=== PATIENT | male | born 1995 | race Caucasian/White ===

== ENCOUNTER 2021-09-20 08:33 | Emergency (ER) | payer OTHER ==
[2021-09-20 08:39] VITALS: RESP 18
[2021-09-20] MEDS ORDERED: LORazepam 1 MG TAB PO STA (09:01)
--- NOTE | 2021-09-20 09:03 | ED ---
General Adult HPI - General Chief complaint: Anxiety Stated complaint: anxiety Time Seen by Provider: 09/20/21 08:35 Source: patient, RN notes reviewed, old records reviewed Mode of arrival: ambulatory Limitations: no limitations - History of Present Illness Initial comments: This is a 26-year-old male who presents emergency Department complaining of rosado ving a panic attack. Patient states she is under a lot of stress because his safety officer wants to get The next 3 days. Patient also states he thinks he may have got somewhat and so that has added more stress. Patient denies any drug use except marijuana. Patient denies any fever chills or cough per patient denies any chest pain palpitations difficulty breathing shortest breath. Patient states when he got really panicked only was hyperventilating and he became very tingly in his hands and feet and around his mouth. Patient denies any abdominal pain patient denies nausea vomiting diarrhea. - Related Data Home Medications Medication Instructions Recorded Confirmed No Known Home Medications 09/20/21 09/20/21 Allergies Allergy/AdvReac Type Severity Reaction Status Date / Time No Known Allergies Allergy Verified 09/20/21 09:20 Review of Systems ROS Statement: Those systems with pertinent positive or pertinent negative responses have been documented in the HPI. ROS Other: All systems not noted in ROS Statement are negative. Past Medical History Past Medical History: No Reported History History of Any Multi-Drug Resistant Organisms: None Reported Past Surgical History: Orthopedic Surgery Past Psychological History: Anxiety Smoking Status: Vaper Past Alcohol Use History: Occasional Past Drug Use History: Marijuana General Exam - General Exam Comments Initial Comments: GENERAL: Patient is well-developed and well-nourished. Patient is nontoxic and well- hydrated and is in no acute distress. ENT: Neck is soft and supple. No significant lymphadenopathy is noted. Oropharynx is clear. Moist mucous membranes. Neck has full range of motion without eliciting any pain. EYES: The sclera were anicteric and conjunctiva were pink and moist. Extraocular movements were intact and pupils were equal round and reactive to light. Eyelids were unremarkable. PULMONARY: Unlabored respirations. Good breath sounds bilaterally. No audible rales rhonchi or wheezing was noted. CARDIOVASCULAR: There is a regular rate and rhythm without any murmurs gallops or rubs. ABDOMEN: Soft and nontender with normal bowel sounds. SKIN: Skin is clear with no lesions or rashes and otherwise unremarkable. NEUROLOGIC: Patient is alert and oriented x3. Cranial nerves II through XII are grossly intact. Motor and sensory are also intact. Normal speech, volume and content. Symmetrical smile. MUSCULOSKELETAL: Normal extremities with adequate strength and full range of motion. LYMPHATICS: No significant lymphadenopathy is noted PSYCHIATRIC: Patient is mildly anxious. Limitations: no limitations Course Vital Signs 09/20/21 09/20/21 09/20/21 08:36 09:17 10:00 Temperature 97.4 F L 98.0 F Pulse Rate 74 83 Respiratory 18 18 Rate Blood Pressure 130/80 103/62 O2 Sat by Pulse 100 99 Oximetry Medical Decision Making - Medical Decision Making [facility]. Disposition Clinical Impression: Acute anxiety Disposition: HOME SELF-CARE Instructions (If sedation given, give patient instructions): Generalized Anxiety Disorder (ED) Additional Instructions: Patient should follow-up at [facility] Is patient prescribed a controlled substance at d/c from ED?: No Referrals: None,Stated [REFERRING] - 1-2 days Time of Disposition: 09:03
[2021-09-20 10:01] VITALS: BP 103/62; PULSE 83; TEMP 98
== END 2021-09-20 10:03 | disposition home or self-care (01) ==
LOC: EC 08:33
DX: F41.9 Anxiety disorder, unspecified (principal); F17.209 Nicotine dependence, unspecified, with unspecified nicotine-induced disorders
CPT/HCPCS: 99283; 99284

== ENCOUNTER 2024-09-11 07:58 | Emergency (ER) | payer BC, OTHER ==
[2024-09-11 08:01] VITALS: BP 144/87; PULSE 80; RESP 18; TEMP 97.9
--- NOTE | 2024-09-11 08:15 | ED ---
ENT HPI - General Chief complaint: Dental/Oral Stated complaint: Dental pain Time Seen by Provider: 09/11/24 08:00 Source: patient, RN notes reviewed Mode of arrival: ambulatory Limitations: no limitations - History of Present Illness Initial comments: 49-year-old male presents emerged part complaint of dental pain. Patient states he has infected molars states they have cracked out. Patient states he has been having increasing pain over the last week he has not scheduled an appoint with a dentist yet. No fevers or chills no difficulty swallowing. - Related Data Previous Rx's Medication Instructions Recorded Escitalopram [Lexapro] 5 mg PO DAILY #30 tablet 11/07/22 Amoxic-Pot Clav 875-125Mg 1 tab PO Q12HR #20 tab 09/11/24 [Augmentin 875-125] Ibuprofen [Motrin] 600 mg PO Q8HR PRN #20 tab 09/11/24 Allergies Allergy/AdvReac Type Severity Reaction Status Date / Time No Known Allergies Allergy Verified 09/11/24 08:01 Review of Systems ROS Statement: Those systems with pertinent positive or pertinent negative responses have been documented in the HPI. ROS Other: All systems not noted in ROS Statement are negative. Past Medical History Past Medical History: No Reported History History of Any Multi-Drug Resistant Organisms: None Reported Past Surgical History: Orthopedic Surgery Past Psychological History: Anxiety Smoking Status: Current every day smoker, Vaper Past Alcohol Use History: Occasional Past Drug Use History: Marijuana General Exam Limitations: no limitations General appearance: alert, in no apparent distress Head exam: Present: atraumatic, normocephalic, normal inspection Eye exam: Present: normal appearance, PERRL, EOMI. Absent: scleral icterus, conjunctival injection, periorbital swelling ENT exam: Present: mucous membranes moist. Absent: normal oropharynx (Impacted lower molars, associated without obvious abscess) Neck exam: Present: normal inspection, full ROM. Absent: tenderness, meningismus, lymphadenopathy Respiratory exam: Present: normal lung sounds bilaterally. Absent: respiratory distress, wheezes, rales, rhonchi, stridor Cardiovascular Exam: Present: regular rate, normal rhythm, normal heart sounds. Absent: systolic murmur, diastolic murmur, rubs, gallop, clicks Course Vital Signs 09/11/24 07:59 Temperature 97.9 F Pulse Rate 80 Respiratory 18 Rate Blood Pressure 144/87 O2 Sat by Pulse 100 Oximetry Medical Decision Making - Medical Decision Making Was pt. sent in by a medical professional or institution (JENAE Torres, MILL DRESSER, urgent care, hospital, or detention...) When possible be specific @ -No Did you speak to anyone other than the patient for history (EMS, parent, family, police, friend...)? What history was obtained from this source @ -No Did you review nursing and triage notes (agree or disagree)? Why? @ -I reviewed and agree with nursing and triage notes Were old charts reviewed (outside hosp., previous admission, EMS record, old EKG, old radiological studies, urgent care reports/EKG's, detention records)? Report findings @ -No old charts were reviewed Differential Diagnosis (chest pain, altered mental status, abdominal pain women, abdominal pain men, vaginal bleeding, weakness, fever, dyspnea, syncope, headache, dizziness, GI bleed, back pain, seizure, CVA, palpatations, mental health, musculoskeletal)? @ -Toothache, dental abscess, impacted molar, dental fracture EKG interpreted by me (3pts min.). @ -None X-rays interpreted by me (1pt min.). @ -None done CT interpreted by me (1pt min.). @ -None done U/S interpreted by me (1pt. min.). @ -None done What testing was considered but not performed or refused? (CT, X-rays, U/S, labs)? Why? @ -None What meds were considered but not given or refused? Why? @ -None Did you discuss the management of the patient with other professionals (professionals i.e. JENAE Torres, MILL DRESSER, lab, RT, psych nurse, geriatric social work professor, vice president process, teacher, senior vice president and chief information officer, case management assistant)? Give summary @ -No Was smoking cessation discussed for >3mins.? @ -No Was critical care preformed (if so, how long)? @ -No Were there social determinants of health that impacted care today? How? (Homelessness, low income, unemployed, alcoholism, drug addiction, transportation, low edu. Level, literacy, decrease access to med. care, assisted, rehab)? @ -No Was there de-escalation of care discussed even if they declined (Discuss DNR or withdrawal of care, Hospice)? DNR status @ -No What co-morbidities impacted this encounter? (DM, HTN, Smoking, COPD, CAD, Cancer, CVA, ARF, Chemo, Hep., AIDS, mental health diagnosis, sleep apnea, morbid obesity)? @ -None Was patient admitted / discharged? Hospital course, mention meds given and route, prescriptions, significant lab abnormalities, going to OR and other pertinent info. @ -Discharge patient has impacted molar dental fracture probable underlying dental infection patient started on antibiotics will follow-up with dentist kayla servin discussed. Undiagnosed new problem with uncertain prognosis? @ -No Drug Therapy requiring intensive monitoring for toxicity (Heparin, Nitro, Insulin, Cardizem)? @ -No Were any procedures done? @ -No Diagnosis/symptom? @ -Impacted molar r, dental fracture, dental infection Acute, or Chronic, or Acute on Chronic? @ -acute Uncomplicated (without systemic symptoms) or Complicated (systemic symptoms)? @ -Uncomplicated Side effects of treatment? @ -No Exacerbation, Progression, or Severe Exacerbation? @ -No Poses a threat to life or bodily function? How? (Chest pain, [place], [place], pneumonia, PE, COPD, DKA, ARF, appy, cholecystitis, CVA, Diverticulitis, Homicidal, Suicidal, threat to staff... and all critical care pts) @ -No Disposition Clinical Impression: Fracture of tooth, Impacted molar, Dental infection Disposition: HOME SELF-CARE Condition: Stable Instructions (If sedation given, give patient instructions): Toothache (ED) Additional Instructions: Please return to the Emergency Department if symptoms worsen or any other co ncerns. Prescriptions: Amoxic-Pot Clav 875-125Mg [Augmentin 875-125] 1 tab PO Q12HR #20 tab Ibuprofen [Motrin] 600 mg PO Q8HR PRN #20 tab PRN Reason: Pain Is patient prescribed a controlled substance at d/c from ED?: No Referrals: None,Stated [Primary Care Provider] - 1-2 days Time of Disposition: 08:15
[2024-09-11] MEDS: ACET/COD 300 MG/30 MG STARTER PACK 6 TAB BTL PO STA (08:32)
[2024-09-11] MEDS: HYDROcodone/APAP 5-325MG 1 EACH TAB PO STA (08:33)
== END 2024-09-11 08:38 | disposition home or self-care (01) ==
LOC: EC 07:58
DX: S02.5XXA Fracture of tooth (traumatic), initial encounter for closed fracture (principal); K01.1 Impacted teeth; K04.7 Periapical abscess without sinus; F17.290 Nicotine dependence, other tobacco product, uncomplicated; X58.XXXA Exposure to other specified factors, initial encounter
CPT/HCPCS: 99282

== ENCOUNTER 2024-09-11 17:04 | Emergency (ER) | payer BC, OTHER ==
[2024-09-11 17:11] VITALS: RESP 18; TEMP 98.5
--- NOTE | 2024-09-11 17:13 | ED ---
ENT HPI - General Chief complaint: Dental/Oral Stated complaint: oral pain Time Seen by Provider: 09/11/24 17:12 Source: patient, RN notes reviewed, old records reviewed Mode of arrival: ambulatory Limitations: no limitations - History of Present Illness Initial comments: 29-year-old male presented the ER for evaluation of right lower molar pain. Patient states over the past 4 to 5 days he has had an increase in pain to this area. Patient has not followed up with a dentist but plans on scheduling an appointment tomorrow. Patient has tried [id number] medications without any relief. He denies any foul taste or drainage from area of concern. No tongue or throat swelling. Patient was seen here this morning given [place], ibuprofen and started on Augmentin. He has not picked up prescription at this time. He reports pain return shortly after medication wore off. No other complaints. - Related Data Previous Rx's Medication Instructions Recorded Escitalopram [Lexapro] 5 mg PO DAILY #30 tablet 11/07/22 Amoxic-Pot Clav 875-125Mg 1 tab PO Q12HR #20 tab 09/11/24 [Augmentin 875-125] Ibuprofen [Motrin] 600 mg PO Q8HR PRN #20 tab 09/11/24 Allergies Allergy/AdvReac Type Severity Reaction Status Date / Time No Known Allergies Allergy Verified 09/11/24 08:01 Review of Systems ROS Statement: Those systems with pertinent positive or pertinent negative responses have been documented in the HPI. ROS Other: All systems not noted in ROS Statement are negative. Past Medical History Past Medical History: No Reported History History of Any Multi-Drug Resistant Organisms: None Reported Past Surgical History: Orthopedic Surgery Past Psychological History: Anxiety Smoking Status: Current every day smoker, Vaper Past Alcohol Use History: Occasional Past Drug Use History: Marijuana General Exam - General Exam Comments Initial Comments: Visual Physical Exam Vital signs reviewed General: Well-appearing, nontoxic, no acute distress. Head: Normocephalic, atraumatic Eyes: PERRLA, EOMI ENT: Airway patent Chest: Nonlabored breathing Skin: No visual rash, normal skin tone Neuro: Alert and oriented 3 Musculoskeletal: No gross abnormalities Limitations: no limitations General appearance: alert, in no apparent distress Eye exam: Present: normal appearance, PERRL, EOMI. Absent: scleral icterus, conjunctival injection, periorbital swelling ENT exam: Present: normal exam, mucous membranes moist, other (Impacted right lower molar. There is no drainable abscess, erythema, tongue or throat swelling noted. Tenderness to right mandible) Respiratory exam: Present: normal lung sounds bilaterally. Absent: respiratory distress, wheezes, rales, rhonchi, stridor Cardiovascular Exam: Present: regular rate, normal rhythm, normal heart sounds. Absent: systolic murmur, diastolic murmur, rubs, gallop, clicks Neurological exam: Present: alert, oriented X3, CN II-XII intact Skin exam: Present: warm, dry, intact, normal color. Absent: rash Course Vital Signs 09/11/24 09/11/24 17:09 18:31 Temperature 98.5 F Pulse Rate 63 71 Respiratory 18 18 Rate Blood Pressure 144/87 137/93 O2 Sat by Pulse 100 98 Oximetry Procedures - Nerve Block Consent Obtained: verbal consent Local Anesthetic Used: Marcaine 0.25% Amount of anesthesia used: 8 Side: right Intraoral Nerve Block: inferior alveolar Procedure Successful: Yes Patient Tolerated Procedure: well Medical Decision Making - Medical Decision Making I performed the quick note portion of this chart. Electronically signed by David Castañeda PA-C Was pt. sent in by a medical professional or institution (JENAE Torres, METER RECORD CLERK, urgent care, hospital, or residential...) When possible be specific @ -No Did you speak to anyone other than the patient for history (EMS, parent, family, police, friend...)? What history was obtained from this source @ -No Did you review nursing and triage notes (agree or disagree)? Why? @ -I reviewed and agree with nursing and triage notes Were old charts reviewed (outside hosp., previous admission, EMS record, old EKG, old radiological studies, urgent care reports/EKG's, residential records)? Report findings @ -Yes, I reviewed emergency department visit from 09/11/24. Patient seen here for dental pain patient given [place], ibuprofen and prescribed Augmentin. Differential Diagnosis (chest pain, altered mental status, abdominal pain women, abdominal pain men, vaginal bleeding, weakness, fever, dyspnea, syncope, headache, dizziness, GI bleed, back pain, seizure, CVA, palpatations, mental health, musculoskeletal)? @ -Fractured tooth, dental abscess, James angina,... This list is not meant to be all-inclusive EKG interpreted by me (3pts min.). @ -None done X-rays interpreted by me (1pt min.). @ -None done CT interpreted by me (1pt min.). @ -None done U/S interpreted by me (1pt. min.). @ -None done What testing was considered but not performed or refused? (CT, X-rays, U/S, labs)? Why? @ -None What meds were considered but not given or refused? Why? @ -None Did you discuss the management of the patient with other professionals (professionals i.e. , PA, METER RECORD CLERK, lab, RT, psych nurse, social media assistant, heating element builder, teacher, svp chief marketing officer, case monitor)? Give summary @ -No Was smoking cessation discussed for >3mins.? @ -No Was critical care preformed (if so, how long)? @ -No Were there social determinants of health that impacted care today? How? (Homelessness, low income, unemployed, alcoholism, drug addiction, transportation, low edu. Level, literacy, decrease access to med. care, assisted, rehab)? @ -No Was there de-escalation of care discussed even if they declined (Discuss DNR or withdrawal of care, Hospice)? DNR status @ -No What co-morbidities impacted this encounter? (DM, HTN, Smoking, COPD, CAD, Cancer, CVA, ARF, Chemo, Hep., AIDS, mental health diagnosis, sleep apnea, morb id obesity)? @ -None Was patient admitted / discharged? Hospital course, mention meds given and route, prescriptions, significant lab abnormalities, going to OR and other pertinent info. @ -Discharge. 29-year-old male presented the ER for evaluation of right lower molar pain. Vitals within acceptable limits. There is an impacted molar to the right lower jaw. There is no drainable abscess noted. No tongue or throat swelling. Patient with no signs of acute distress. Dental block performed for pain control, with relief. Patient also given [place] and discharged with a Tylenol 3 starter pack for outpatient pain control. One time dose of Augmentin as he has not started taking antibiotic prescribed this morning, I advised patient to pick this up from the pharmacy upon discharge. I also recommened him to follow-up closely with a dentist for further evaluation and treatment, he is scheduling an appointment tomorrow. Patient is stable for discharge at this time. Strict return parameters discussed. Patient discharged in stable condition. Patient verbally expressed understanding agreement with care plan. Case discussed with ED attending, Dr. Rosen. Undiagnosed new problem with uncertain prognosis? @ -No Drug Therapy requiring intensive monitoring for toxicity (Heparin, Nitro, Insulin, Cardizem)? @ -No Were any procedures done? @ -No Diagnosis/symptom? @ -Impacted molar/dental pain Acute, or Chronic, or Acute on Chronic? @ -Default Uncomplicated (without systemic symptoms) or Complicated (systemic symptoms)? @ -Default Side effects of treatment? @ -No Exacerbation, Progression, or Severe Exacerbation? @ -No Poses a threat to life or bodily function? How? (Chest pain, [place], [place], pneumonia, PE, COPD, DKA, ARF, appy, cholecystitis, CVA, Diverticulitis, Homicidal, Suicidal, threat to staff... and all critical care pts) @ -No Disposition Clinical Impression: Impacted molar, Fracture of tooth Disposition: HOME SELF-CARE Condition: Stable Instructions (If sedation given, give patient instructions): Toothache (ED) Additional Instructions: Augmentin as prescribed and currently at your pharmacy. Take this as prescribed. Follow-up closely with a dentist. I recommend [id number] ibuprofen and Tylenol for pain control. Return to the ER for any new or worsening concerns. Is patient prescribed a controlled substance at d/c from ED?: No Referrals: None,Stated [Primary Care Provider] - 1-2 days Hansel Lopez DDS [STAFF PHYSICIAN] - 1-2 days Isa Vallejo DDS [STAFF PHYSICIAN] - 1-2 days Forms: Area PCPs Time of Disposition: 18:08
[2024-09-11] MEDS: AMOXIC-POT CLAV 875-125MG 1 EACH TAB PO STA (17:47)
[2024-09-11] MEDS: BUPIVACAINE (PF) 0.25% 30 ML VIAL SQ STA (17:47)
[2024-09-11] MEDS: LIDOCAINE 1% INJ 10MG/ML (20 ML MDV) SQ ONE (17:48)
[2024-09-11] MEDS: HYDROcodone/APAP 5-325MG 1 EACH TAB PO STA (18:26)
[2024-09-11] MEDS: ACET/COD 300 MG/30 MG STARTER PACK 6 TAB BTL PO STA (18:27)
[2024-09-11 18:37] VITALS: BP 137/93; PULSE 71
== END 2024-09-11 18:37 | disposition home or self-care (01) ==
LOC: EC 17:04
DX: S02.5XXA Fracture of tooth (traumatic), initial encounter for closed fracture (principal); K01.1 Impacted teeth; F17.290 Nicotine dependence, other tobacco product, uncomplicated
CPT/HCPCS: 99283; 64400; J2003; J0665